=== PATIENT | female | born 1985 | race Two or more races ===

== ENCOUNTER 2017-07-16 05:54 | Inpatient (IN) | payer MEDICAID ==
[~2017-07-16] VITALS: Ht 165.1 cm; Wt 112.0 kg
[2017-07-16] MEDS ORDERED: NEWBORN KIT ONE (05:59)
[2017-07-16] MEDS ORDERED: OXYTOCIN 30U/ 0.9% NaCL 500ML 500 ML ONE ×2 (05:59→13:12)
[2017-07-16 06:01] VITALS: BP 119/70
[2017-07-16] MEDS ORDERED: FLU VACC QS2017-18 (36MOS+) UP/PF 0.5 ML IM-VACC ONE (06:30)
[2017-07-16] MEDS ORDERED: OXYTOCIN 30U/ 0.9% NaCL 500ML 500 ML IV ONE (07:03)
[2017-07-16 07:13] LABS: HEMATOCRIT 33.3 % (34.6-47.8); WHITE BLOOD COUNT 8.3 x10^3/uL (3.4-10)
[2017-07-16] MEDS: LACTATED RINGERS 1,000 ML IV SCH ×2 (07:30→08:00)
[2017-07-16] MEDS ORDERED: TERBUTALINE 1 MG/ML, 1ML IVPush PRN (07:30)
[2017-07-16] MEDS ORDERED: FENTANYL PF 100 MCG/2ML IVPush PRN (07:30)
[2017-07-16] MEDS ORDERED: ONDANSETRON 2MG/ML, 2ML IVPush PRN (07:30)
[2017-07-16] MEDS ORDERED: BUPIVACAINE/PF 0.25% ONE (07:50)
[2017-07-16] MEDS ORDERED: FENTANYL/BUPIV./NS/PF 250 ML EPIDCONT ONE ×2 (07:50→07:58)
[2017-07-16] MEDS ORDERED: LIDOCAINE/PF 1.5%-EPI 1:200K, 30ML ONE ×2 (07:51→07:58)
[2017-07-16] MEDS ORDERED: FENTANYL PF 100 MCG/2ML ONE (08:49)
[2017-07-16] MEDS: OXYTOCIN 30U/ 0.9% NaCL 500ML 500 ML IV SCH ×2 (11:51→21:51)
[2017-07-16] MEDS ORDERED: HYDROcodone/APAP 5/325 TABLET PO PRN (12:00)
[2017-07-16] MEDS ORDERED: MISOPROSTOL 200 MCG TABLET PR PRN (12:00)
[2017-07-16] MEDS ORDERED: DOCUSATE 100 MG CAPSULE PO PRN (12:00)
[2017-07-16] MEDS ORDERED: ACETAMINOPHEN 325 MG TABLET PO PRN ×2 (12:00)
[2017-07-16] MEDS: IBUPROFEN 600 MG TABLET PO PRN (15:14)
[2017-07-16 15:36] VITALS: BP 107/62
[2017-07-16 19:55] LABS: HEMATOCRIT 30.1 % (34.6-47.8); HEMOGLOBIN 9.9 g/dL (11.7-16.4); WHITE BLOOD COUNT 10.3 x10^3/uL (3.4-10)
[2017-07-16] MEDS: HYDROcodone/APAP 5/325 TABLET PO PRN (20:10)
[2017-07-16] MEDS ORDERED: LACTATED RINGERS 1,000 ML IV SCH (21:37)
[2017-07-16] MEDS: FENTANYL/BUPIV./NS/PF 250 ML EPIDCONT SCH ×2 (21:37→23:25)
[2017-07-16 22:00] VITALS: BP 106/59
[2017-07-16] MEDS ORDERED: LACTATED RINGERS 1,000 ML IVBOLUS PRN (22:00)
[2017-07-16] MEDS ORDERED: DIPH,PERTUSS(ACELL),TET VAC/PF NC IM-VACC ONE (23:29)
[2017-07-17] MEDS ORDERED: DIPH,PERTUSS(ACELL),TET VAC/PF NC IM-VACC ONE
[2017-07-17 00:40] VITALS: BP 110/60
[2017-07-17] MEDS: IBUPROFEN 600 MG TABLET PO PRN ×3 (01:34→13:34)
[2017-07-17] MEDS: HYDROcodone/APAP 5/325 TABLET PO PRN ×2 (01:34→16:03)
[2017-07-17 04:00] VITALS: BP 114/60
[2017-07-17 08:00] VITALS: BP 108/59
[2017-07-17] MEDS ORDERED: PRENATAL VIT/IRON/FA 1 EACH TABLET PO SCH (09:00)
[2017-07-17 20:00] VITALS: BP 123/77
[2017-07-17] MEDS ORDERED: HYDROcodone/APAP 5/325 TABLET PO PRN (21:00)
[2017-07-17] MEDS ORDERED: DOCUSATE 100 MG CAPSULE PO PRN (21:00)
[2017-07-17] MEDS ORDERED: ACETAMINOPHEN 325 MG TABLET PO PRN ×2 (21:00)
[2017-07-18] MEDS: IBUPROFEN 600 MG TABLET PO PRN (01:56)
[2017-07-18] MEDS: HYDROcodone/APAP 5/325 TABLET PO PRN (01:56)
[2017-07-18] MEDS ORDERED: MAGNESIUM HYDROXIDE 8%, 30ML UDC PO PRN (06:30)
[2017-07-18 08:15] VITALS: BP 124/79
[2017-07-18] MEDS ORDERED: DOCUSATE 100 MG CAPSULE PO SCH (09:00)
[2017-07-18] MEDS ORDERED: PRENATAL VIT/IRON/FA 1 EACH TABLET PO SCH (09:00)
== END 2017-07-18 10:15 | disposition hospice, home (50) | DRG 775 ==
LOC: LDOP 05:54 → LDIP 07:03 → 2NW 14:23
PROVIDERS: ADMIT Obstetrics & Gynecology; ATTEND Obstetrics & Gynecology
PROC: 10E0XZZ Delivery of Products of Conception, External Approach (ICD-10-PCS; principal; 2017-07-16)
PROC: 0HQ9XZZ Repair Perineum Skin, External Approach (ICD-10-PCS; 2017-07-16)
PROC: 3E0S3BZ Introduction of Anesthetic Agent into Epidural Space, Percutaneous Approach (ICD-10-PCS; 2017-07-16)
PROC: 00HU33Z Insertion of Infusion Device into Spinal Canal, Percutaneous Approach (ICD-10-PCS; 2017-07-16)
DX: O77.0 Labor and delivery complicated by meconium in amniotic fluid (principal); O70.0 First degree perineal laceration during delivery; Z37.0 Single live birth; Z3A.38 38 weeks gestation of pregnancy
CPT/HCPCS: 36415; 85025; 86850; 86900; 88307; 90686; 90715; J3010; J3490; J2590; J7120

== ENCOUNTER 2017-10-13 05:58 | Day surgery (SDC) | payer MEDICAID ==
[~2017-10-13] VITALS: Ht 167.6 cm; Wt 101.2 kg
[2017-10-13 06:37] VITALS: BP 119/80
[2017-10-13] MEDS ORDERED: LACTATED RINGERS 1,000 ML IV SCH (06:49)
[2017-10-13] MEDS ORDERED: NO MEDS (06:58)
[2017-10-13] MEDS ORDERED: FENTANYL PF 100 MCG/2ML ONE ×2 (07:05→09:01)
[2017-10-13] MEDS ORDERED: EPINEPHRINE 1 MG/ML, 1ML ONE (07:05)
[2017-10-13] MEDS ORDERED: BUPIVACAINE/PF 0.5% ONE (07:05)
[2017-10-13] MEDS ORDERED: MIDAZOLAM 1 MG/ML, 2ML ONE (07:05)
[2017-10-13] MEDS ORDERED: ONDANSETRON 2MG/ML, 2ML ONE ×2 (07:12→08:58)
[2017-10-13] MEDS ORDERED: DEXAMETHASONE 4 MG/ML, 1ML ONE ×2 (07:12)
[2017-10-13] MEDS ORDERED: HYDROcodone/APAP 7.5-325MG/15ML UDC PO PRN (07:30)
[2017-10-13] MEDS ORDERED: FENTANYL PF 100 MCG/2ML IV PRN (07:30)
[2017-10-13] MEDS ORDERED: ACETAMINOPHEN 325 MG TABLET PO PRN (07:30)
[2017-10-13] MEDS ORDERED: ONDANSETRON 2MG/ML, 2ML IVPush PRN (07:30)
[2017-10-13] MEDS ORDERED: morphine SULFATE 10 MG/ML, 1ML IV PRN (07:30)
[2017-10-13] MEDS ORDERED: MEPERIDINE/PF 25MG/0.5ML IVPush PRN (07:30)
[2017-10-13 07:36] LABS: HCG UR SG 1.037 (1.003-1.030)
[2017-10-13] MEDS ORDERED: ROCURONIUM 10 MG/ML,10ML ONE (07:41)
[2017-10-13] MEDS ORDERED: PROPOFOL 10 MG/ML, 20ML ONE (07:41)
[2017-10-13] MEDS ORDERED: CEFAZOLIN 1,000 MG ONE ×2 (07:50)
[2017-10-13] MEDS ORDERED: NEOSTIGMINE 1 MG/ML, 10ML ONE (08:14)
[2017-10-13] MEDS ORDERED: GLYCOPYRROLATE 0.2MG/1ML, 5ML ONE (08:15)
[2017-10-13] MEDS ORDERED: OXYcodone 5 MG/5 ML ORAL.SOL UDC ONE (08:58)
[2017-10-13] MEDS ORDERED: ACETAMINOPHEN 650 MG/20.3 ML UDC ONE (08:58)
[2017-10-13] MEDS ORDERED: OXYcodone 5 MG/5 ML ORAL.SOL UDC PO PRN (09:30)
== END 2017-10-13 12:50 | disposition home or self-care (01) ==
LOC: OUT 05:58
PROVIDERS: ATTEND Obstetrics & Gynecology
DX: Z30.2 Encounter for sterilization (principal)
CPT/HCPCS: 58670; 81025; 88302; J0171; J0690; J1100; J2250; J2405; J2704; J2710; J3010; J3490; J7120

== ENCOUNTER 2019-11-03 18:00 | Emergency (ER) | payer MEDICAID ==
[~2019-11-03] VITALS: Ht 165.1 cm; Wt 109.0 kg
[~2019-11-03 18:00] MED LIST: NO MEDS
--- NOTE | 2019-11-03 19:18 | NUR ---
THIS IS A 34Y F THAT COMES IN FOR [facility] X[facility]. PT STS SHE HAS HX OF ANEMIA AND GETS BAD HEADACHES WHEN HER COUNTS ARE LOW. PT WAS TAKING IRON UNTIL ABOUT A WEEK AGO AND STOPPED DUE TO FEELING NAUSEATED. PT WAS SEEN AT [facility] ABOUT A WEEK AGO FOR THE SAME THING BUT DID NOT GET A TRANSFUSION. PT CONNECTED TO MONITORING VSS, NADN. CALL LIGHT IN REACH
[2019-11-03] MEDS ORDERED: KETOROLAC 30 MG/1 ML IVPush ONE (19:30)
[2019-11-03] MEDS ORDERED: SODIUM CHLORIDE FLUSH 10ML SYR IVF ONE (19:30)
[2019-11-03] MEDS ORDERED: ACETAMINOPHEN 325 MG TABLET PO ONE (19:30)
[2019-11-03] MEDS ORDERED: ONDANSETRON 2MG/ML, 2ML IVPush ONE (19:30)
[2019-11-03] MEDS ORDERED: DIPHENHYDRAMINE 50 MG/ML, 1ML IVPush ONE (19:30)
[2019-11-03 19:50] LABS: ALANINE AMINOTRANSFERASE 19 U/L (12-78); ALBUMIN 3.7 g/dL (3.4-5.0); ANION GAP 7 mmol/L (5-15); CALCIUM 8.4 mg/dL (8.5-10.1); CHLORIDE 109 mmol/L (98-107); CREATININE 0.72 mg/dL (0.55-1.02)
[2019-11-03 19:52] LABS: ALKALINE PHOSPHATASE 78 U/L (45-117); BILIRUBIN,TOTAL 0.3 mg/dL (0.2-1.0); MEAN CORPUSCULAR HEMOGLOBIN 17.9 pg (27.0-34.8); MEAN CORPUSCULAR HGB CONC 30.8 g/dL (32.4-35.8); MEAN PLATELET VOLUME 7.8 fL (7.4-10.4); PLATELET COUNT 276 x10^3/uL (130-400); RED BLOOD COUNT 4.22 x10^6/uL (3.82-5.3); RED CELL DISTRIBUTION WIDTH 21.4 % (9.6-15.2)
[2019-11-03] MEDS ORDERED: DIPHENHYDRAMINE 50 MG/ML, 1ML ONE (19:53)
[2019-11-03] MEDS ORDERED: KETOROLAC 30 MG/1 ML ONE (19:53)
[2019-11-03] MEDS ORDERED: ONDANSETRON 2MG/ML, 2ML ONE (19:53)
--- NOTE | 2019-11-03 20:08 | NUR ---
PIV STARTED, PT MEDICATED PER MAR
[2019-11-03] MEDS ORDERED: ACETAMINOPHEN 325 MG TABLET ONE (20:24)
[2019-11-03 20:27] LABS: MD YES
[2019-11-03 20:29] LABS: BASOS#(MANUAL) 0.05 x10^3/uL (0-0.1); BASOS% (MANUAL) 1 % (0-1); EOS#(MANUAL) 0.05 x10^3/uL (0.0-0.4); EOS% (MANUAL) 1 % (1-7); LYMPH#(MANUAL) 1.63 x10^3/uL (1-3.4); LYMPHS% (MANUAL) 32 % (22-44); MONOS#(MANUAL) 0.26 x10^3/uL (0.3-2.7); MONOS% (MANUAL) 5 % (2-9); SEG#(MANUAL) 3.11 x10^3/uL (1.8-6.8); SEGS% (MANUAL) 61 % (42-75)
[2019-11-03 20:30] LABS: ANISOCYTOSIS 2+; MICROCYTOSIS 2+
[2019-11-03 20:31] LABS: HYPOCHROMIA 2+; OVALOCYTES 1+; POLYCHROMASIA 1+; TEAR DROPS 1+
[2019-11-03 20:33] LABS: <PLATELET ESTIMATE> ADEQUATE; <PLT MORPHOLOGY> NORMAL PLT MORPH
--- NOTE | 2019-11-03 20:51 | NUR ---
BLOOD CONSENT SIGNED, PT RESTING ON [facility]. CALL LIGHT IN REACH DANY
--- NOTE | 2019-11-03 20:58 | NUR ---
PT RESTING ON GURNEY, LIGHTS DIMMED SPOUSE AT BEDSIDE,
[2019-11-03 22:15] VITALS: BP 105/40
--- NOTE | 2019-11-03 22:15 | NUR ---
TASK RN: BLOOD TRANSFUSION STARTED. VERIFIED WITH DAVE FIGUEROA. CONSENT SIGNED BY PT AND ERP. PT ATTACHED TO ALL MONITORING EQUIPMENT. NSR WITH NO ECTOPY NOTED.
[2019-11-03 22:31] VITALS: BP 104/50
--- NOTE | 2019-11-03 22:32 | NUR ---
TASK RN: BLOOD INFUSING. PT DENIES ANY COMPLAINTS AT THIS TIME. TOLERATING WELL. VITALS REMAIN STABLE AND PT REMAINS AFEBRILE. REPORT TO PRIMARY RNDEEPTHI.
[2019-11-03 23:16] VITALS: BP 111/71
--- NOTE | 2019-11-04 00:06 | NUR ---
BLOOD TRANSFUSION COMPLETE, PT DENIES S/S OF ADVERSE REACTIONS
[2019-11-04 00:50] VITALS: BP 114/62
== END 2019-11-04 00:52 | disposition home or self-care (01) ==
LOC: ED 20:19
DX: D50.9 Iron deficiency anemia, unspecified (principal); R51 Headache
CPT/HCPCS: 36415; 36430; 80053; 82728; 83540; 83550; 85025; 86850; 86900; 86923; 93005; 96374; 96375; 99285; J1200; J1885; J2405; P9016